=== PATIENT | male | born 1955 | race Asian ===

== ENCOUNTER 2023-07-31 13:51 | Outpatient (CLI) | payer MEDICARE, MEDICAID | END 2023-07-31 23:59 | disposition home or self-care (01) | LOC: RAD 13:51 | PROVIDERS: ATTEND Psychiatry & Neurology Neurology | DX: I63.22 Cerebral infarction due to unspecified occlusion or stenosis of basilar artery (principal); I63.219 Cerebral infarction due to unspecified occlusion or stenosis of unspecified vertebral artery; I69.391 Dysphagia following cerebral infarction; R13.12 Dysphagia, oropharyngeal phase; R47.1 Dysarthria and anarthria | CPT/HCPCS: 74230 ==

== ENCOUNTER 2024-02-12 13:15 | Outpatient (CLI) | payer MEDICARE, MEDICAID | END 2024-02-12 23:59 | disposition home or self-care (01) | LOC: CARD DIAG 13:15 | PROVIDERS: ATTEND Student in an Organized Health Care Education/Training Program | DX: I09.89 Other specified rheumatic heart diseases (principal); R06.02 Shortness of breath | CPT/HCPCS: 93306 ==